=== PATIENT | female | born 1965 | race Caucasian/White ===

== ENCOUNTER → 2023-11-14 | Day surgery (SDC) | payer SELFPAY ==
[2023-11-14 07:59] VITALS: BMI 17.5
[2023-11-14 08:33] VITALS: BP 167/87; TEMP 97.8; O2SAT 100
[2023-11-14 08:51] LABS: MPV 8.4 fL (7.6-11.3); Platelets 108 thou/uL (152-406)
[2023-11-14 08:59] LABS: PT Prothrombin Time 12.1 SECONDS (9.4-12.5); PTT, Activated Partial Thromb 34.8 SECONDS (24.3-36.9); Protime INR 1.08
--- NOTE | 2023-11-14 12:39 | RAD REPORT ---
EXAM DESCRIPTION: US - Abdomen Exam Limited - 11/14/2023 9:43 am CLINICAL HISTORY: ASCITES COMPARISON: No comparisons TECHNIQUE: Sonographic grayscale and color flow images of the 4 abdominal quadrants were obtained. FINDINGS: The patient presented for a situs drainage. Limited sonographic evaluation of the 4 abdomi nal quadrants revealed no appreciable free ascites. Incidentally noted right layering pleural effusion. IMPRESSION: No appreciable free ascites. Incidentally noted right layering pleural effusion.
== END ==
LOC: DS 07:53
PROVIDERS: ATTEND Internal Medicine Gastroenterology
DX: R18.8 Other ascites (principal); K74.60 Unspecified cirrhosis of liver; R94.5 Abnormal results of liver function studies; Z53.8 Procedure and treatment not carried out for other reasons
CPT/HCPCS: 36415; 76705; 85049; 85610; 85730